=== PATIENT | female | born 2000 | race Caucasian/White ===

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

== ENCOUNTER 2019-05-31 21:56 | Emergency (ER) | payer OTHER | END 2019-05-31 23:44 | disposition home or self-care (01) | LOC: ERS 21:56 | DX: N60.01 Solitary cyst of right breast (principal); F17.210 Nicotine dependence, cigarettes, uncomplicated; F41.9 Anxiety disorder, unspecified; F32.9 Major depressive disorder, single episode, unspecified | CPT/HCPCS: 99282 ==

== ENCOUNTER 2019-08-03 13:42 | Emergency (ER) | payer OTHER ==
[2019-08-03] MEDS ORDERED: Lidocaine Viscous Sol 2% 15 ml UD Cup ONE (14:22)
[2019-08-03] MEDS ORDERED: Mag-Al 1200 mg/1200 mg/30 ML UDCUP ONE (14:22)
[2019-08-03 15:14] LABS: #Basophils 0.1 thou/uL (0.0-0.2); #Eosinphils 0.1 thou/uL (0.0-0.7); #Lymphocytes 2.9 thou/uL (1.20-3.40); #Monocytes 0.5 thou/uL (0.11-0.59); #Neutrophils 6.3 thou/uL (1.40-6.50); %Basophils 0.5 % (0.0-1.0); %Eosinophils 0.8 % (0.0-10.0); %Lymphocytes 29.2 % (28.0-48.0); %Monocytes 5.4 % (0.0-4.0); Hemoglobin 13.3 g/dL (12.0-16.0); Mean Corpuscular Hemoglobin 30.8 pg (25.0-35.0); Mean Corpuscular Volume 90.5 fL (78.0-98.0); Mean Platelet Volume 7.8 fL (7.4-10.4); Platelet Count 205 thou/uL (130-400); RBC Distribution Width 11.2 % (11.5-14.5); Red Blood Cell (RBC) Count 4.31 mill/uL (4.00-5.20); White Blood Cell (WBC) Count 9.8 thou/uL (4.8-10.8)
[2019-08-03 15:16] LABS: Bilirubin Negative (Negative); Blood, Urine Negative (Negative); Clarity Clear (Clear); Glucose, Urine (Dipstick) Normal (Negative); Leukocyte Negative Leu/uL (Negative); Nitrite Negative (Negative); Protein, Urine (Dipstick) Negative (Neg-Trace); Urobilinogen Normal mg/dL (Less than 2)
[2019-08-03 15:35] LABS: ALT (SGPT) 11 U/L (8-55); AST (SGOT) 15 U/L (5-34); Albumin 3.8 g/dL (3.5-5.0); Alkaline Phosphatase 64 U/L (40-100); Anion Gap 12 mmol/L (10-20); BUN (Urea Nitrogen) 7 mg/dL (7.0-18.7); Bilirubin, Total 0.3 mg/dL (0.2-1.2); Calc. Creatinine Clearance 0 mL/min (70-130); Calcium 9.2 mg/dL (7.8-10.44); Carbon Dioxide 21 mmol/L (22-29); Chloride 107 mmol/L (98-107); Estimated GFR-MDRD Greater than 90; Globulin 2.9 g/dL (2.4-3.5); Glucose 78 mg/dL (70-105); Lipase 16 U/L (8-78); Potassium 4.2 mmol/L (3.5-5.1); Protein, Total 6.7 g/dL (6.0-8.3); Sodium 136 mmol/L (136-145)
== END 2019-08-03 16:23 | disposition home or self-care (01) ==
LOC: ERS 13:42
DX: O99.612 Diseases of the digestive system complicating pregnancy, second trimester (principal); K29.70 Gastritis, unspecified, without bleeding; O99.332 Smoking (tobacco) complicating pregnancy, second trimester; F17.210 Nicotine dependence, cigarettes, uncomplicated; Z3A.17 17 weeks gestation of pregnancy
CPT/HCPCS: 36415; 80053; 81003; 83690; 85025; 99284

== ENCOUNTER 2019-09-08 21:46 | Emergency (ER) | payer OTHER ==
[2019-09-08] MEDS ORDERED: Ondansetron PF 4 MG/2 ML Vial ONE (22:13)
[2019-09-08] MEDS ORDERED: Morphine 4 MG/ML VIAL ONE (22:25)
[2019-09-08 22:38] LABS: Hemoglobin 13.6 g/dL (12.0-16.0); Mean Corpuscular HGB CONC 34.1 g/dL (32.0-36.0); Mean Corpuscular Volume 90.7 fL (78.0-98.0); RBC Distribution Width 11.7 % (11.5-14.5); White Blood Cell (WBC) Count 8.8 thou/uL (4.8-10.8)
[2019-09-08 22:38] LABS: Bilirubin Negative (Negative); Blood, Urine Negative (Negative); Clarity Clear (Clear); Glucose, Urine (Dipstick) Normal (Negative); Leukocyte Negative Leu/uL (Negative); Nitrite Negative (Negative); Protein, Urine (Dipstick) Negative (Neg-Trace); Urobilinogen Normal mg/dL (Less than 2)
[2019-09-08 22:50] LABS: #Basophils 0.1 thou/uL (0.0-0.2); #Lymphocytes 1.8 thou/uL (1.20-3.40); #Monocytes 0.5 thou/uL (0.11-0.59); #Neutrophils 6.4 thou/uL (1.40-6.50); %Basophils 0.7 % (0.0-1.0); %Eosinophils 0.5 % (0.0-10.0); %Lymphocytes 20.9 % (28.0-48.0); %Monocytes 5.1 % (0.0-4.0); %Neutrophils 72.7 % (31.0-61.0); Platelet Count 113 thou/uL (130-400); Platelet Morphology Comment Appears Decreased
[2019-09-08 23:18] LABS: Albumin 3.9 g/dL (3.5-5.0)
--- NOTE | 2019-09-08 23:18 | ULT ---
Sonogram right upper quadrant HISTORY: Right upper quadrant pain. FINDINGS: Gallbladder has a normal appearance. Common duct is 0.3 cm. Liver is unremarkable. No free fluid within the abdomen. IMPRESSION : Normal exam.
[2019-09-08 23:19] LABS: Chloride 105 mmol/L (98-107); Potassium 3.9 mmol/L (3.5-5.1); Sodium 137 mmol/L (136-145)
[2019-09-08 23:20] LABS: Calcium 10.2 mg/dL (7.8-10.44)
[2019-09-08 23:21] LABS: Globulin 3.1 g/dL (2.4-3.5); Glucose 91 mg/dL (70-105)
[2019-09-08 23:22] LABS: Bilirubin, Total 0.2 mg/dL (0.2-1.2); Carbon Dioxide 19 mmol/L (22-29)
[2019-09-08 23:23] LABS: Alkaline Phosphatase 61 U/L (40-100)
[2019-09-08 23:24] LABS: Calc. Creatinine Clearance 0 mL/min (70-130); Estimated GFR-MDRD Greater than 90
[2019-09-08 23:25] LABS: BUN (Urea Nitrogen) 9 mg/dL (7.0-18.7)
[2019-09-08 23:26] LABS: AST (SGOT) 18 U/L (5-34)
[2019-09-08 23:27] LABS: ALT (SGPT) 13 U/L (8-55); Lipase 10 U/L (8-78)
[2019-09-08 23:38] LABS: Anion Gap 17 mmol/L (10-20)
== END 2019-09-09 00:39 | disposition home or self-care (01) ==
LOC: ERS 21:46
DX: O99.89 Other specified diseases and conditions complicating pregnancy, childbirth and the puerperium (principal); R10.11 Right upper quadrant pain; R10.13 Epigastric pain; O99.342 Other mental disorders complicating pregnancy, second trimester; F41.9 Anxiety disorder, unspecified; O99.332 Smoking (tobacco) complicating pregnancy, second trimester; F17.210 Nicotine dependence, cigarettes, uncomplicated; Z3A.14 14 weeks gestation of pregnancy
CPT/HCPCS: 76705; 80053; 81003; 83690; 85025; 96361; 96374; 96375; J2270; J2405

== ENCOUNTER 2020-01-17 22:09 | Observation (INO) | payer OTHER ==
[2020-01-17 22:38] VITALS: BMI 33.2
[2020-01-17] MEDS ORDERED: hydrALAZINE 20 MG/ML VIAL SLOW IVP PRN (23:13)
--- NOTE | 2020-01-17 23:14 | PDOC.LDHP ---
Labor and Delivery H&P Chief complaint: contractions HPI: 19YO @ 32.6 WGA presenting for evaluation for contractions. Reports she has been dealing with contractions on and off for several weeks but was actually seen in a hospital last night for them in [place], [place] where her PCP practices. Says the contractions became persistently painful and during her drive to the hospital had persistent painful contraction every 3 minutes for the entire [address]. Reports during her workup in [place] she was told her cervix was closed and was given 3L of fluid & terbutaline x 3 before being discharged home with a prescription for a muscle relaxer. States she never picked up the prescription or tried it because she was hesitant to take a muscle relaxer while . States she has had continued contractions on and off over the course of today and finally just decided to come to [facility] for a second op inion/evaluation. States her contractions have become more painful and regular since arriving to L&D. Reports associated vaginal pain but no spotting or bleeding, LOF or abnormal discharge. No intercourse in at least 2 weeks. No N/V/D, dysuria or hematuria. +FM. Current gestational age (weeks): 32 (32.6) Due date: 03/07/20 Grav: 7 Para: 1 (1051) OB History Details: 1 term C/S for breech presentation and 5 SABs Current complications: gestational diabetes Abnormal US findings: No Past Medical History: None Current medications: pre- vitamins Previous surgical history: low tranverse CS, other (tonsillectomy, adenoidectomy & hemorrhoidectomy) Allergies/Adverse Reactions: Allergies Allergy/AdvReac Type Severity Reaction Status Date / Time codeine Allergy Severe Anaphylaxis Verified 01/17/20 22:25 Penicillins Allergy Severe Anaphylaxis Verified 01/17/20 22:25 Social history: tobacco use (smokes a few times/week but no EtOH or drug use) - Physical Exam Vital signs reviewed and normal: yes General: NAD, breathing through contractions Heart: RRR Lungs: nonlabored breathing Abdomen: NTTP Extremeties: no edema FHT: category 1 [place] contractions every: 4-9 minutes - Vaginal Exam cm dilated: 0 Effacement: 0% Station: -3 - OB Labs GBS: unknown - Plan Plan: other -: 19YO @ 32.6 WGA presenting for evaluation for contractions. contractions, r/o labor: - Maranda q4-9 minutes on the monitor since arrival w/ cat 1 FHTs. SVE clos ed/thick/high. FFN & clean catch UA collected. Will give 1L of LR and a 1 time dose of IV stadol & continue to monitor closely. A1GDM: - Continue QID accuchecks and close f/u w/ PCP Hx C/S x1: - Aware, will plan for rLTCS for delivery. Dispo: Will give 1L of LR and IV stadol & continue to monitor pending UA results. Addendum - Attending - Attending Attestation Date/Time: 01/18/20 0037 I personally evaluated the patient and discussed the management with Dr. Hernandez. I agree with the History, Examination, Assessment and Plan documented above.
[2020-01-17] MEDS ORDERED: Lactated Ringer's 1,000 ML IV SCH (23:45)
[2020-01-17] MEDS ORDERED: Butorphanol Tartrate 1 MG/ML VIAL SLOW IVP SCH (23:59)
[2020-01-18 00:47] LABS: Bilirubin Negative (Negative); Blood, Urine Negative (Negative); Clarity Clear (Clear); Glucose, Urine (Dipstick) Normal (Negative); Ketone, Urine Negative (Negative); Leukocyte Negative Leu/uL (Negative); Nitrite Negative (Negative); Protein, Urine (Dipstick) Negative (Neg-Trace); RBC/HPF 0-3 HPF (0-3); Specific Gravity, Urine 1.003 (1.002-1.036); Squamous Epithelial 0-3 HPF (0-3); Urobilinogen Normal mg/dL (Less than 2); WBC/HPF 0-3 HPF (0-3)
[2020-01-18 00:53] LABS: Bacteria/HPF 1+ HPF (None Seen); Urine Culture Reflex Yes Yes
[2020-01-18] MEDS ORDERED: Acetaminophen 500 MG TAB PO PRN (01:13)
[2020-01-18] MEDS ORDERED: Promethazine HCl 25 MG/ML VIAL IM PRN (01:13)
[2020-01-18] MEDS ORDERED: Ondansetron PF 4 MG/2 ML Vial IVP PRN (01:13)
--- NOTE | 2020-01-18 01:23 | PDOC.BPN ---
<Jenni Hernandez - Last Filed: 01/18/20 01:23> - Brief Progress Note Encounter Date: 01/18/20 Encounter Time: 01:22 19YO @ 33 WGA who presented for evaluation for contractions. contractions, r/o labor: - Maranda q4-9 minutes on the monitor w/ persistent cat 1 strip but appears more uncomfortable & is having regular, palpable contractions. s/p 1L LR & UA notable for 1+ bacteria which could be triggering contractions. Will give 100mg PO macrobid x 7 days for possible UTI. Will also give betamethasone 12mg IM Q24HR x 2 doses and load with procardia 20mg & continue q6h for the next ~48 hours as well. A1GDM: - Continue QID accuchecks and diabetic diet. - US for EFW & presentation pending. Hx C/S x1: - Aware, will plan for TOLAC for delivery per patient's request should she go into labor here pending US confirms cephalic presentation. Dispo: Will admit for observation overnight to give IM steroids Q24Hr x2 for lung maturity and tocolysis w/ JAKE nifedipine as noted above. <Eugenio Arana - Last Filed: 01/18/20 07:17> Addendum - Attending - Attending Attestation Date/Time: 01/18/20 0716 I personally evaluated the patient and discussed the management with Dr. Hernandez. I agree with the History, Examination, Assessment and Plan documented above.
[2020-01-18] MEDS ORDERED: NIFEdipine 10 MG CAP PO SCH ×2 (01:30→19:36)
[2020-01-18] MEDS ORDERED: Nitrofurantoin Monohyd/M-Cryst 100 MG CAP PO SCH ×2 (01:30→09:00)
[2020-01-18] MEDS: Betamet Acet/Betamet Na Ph 30 MG/5 ML VIAL IM SCH (01:39)
[2020-01-18] MEDS: NIFEdipine 10 MG CAP PO SCH ×3 (06:22→18:25)
--- NOTE | 2020-01-18 06:52 | PDOC.LDPN ---
Labor & Delivery Progress Note - Subjective Subjective: comfortable - Objective Vital signs reviewed and normal: yes General: NAD, breathing through contractions FHT: category 1 [place] contractions every: irregular contraction pattern noted on monitor Resuscitative measures: other (See plan below.) -: 19YO @ 33 WGA who presented for evaluation for contractions. contractions: - Still liv but is occurring less regularly on the monitor and per the patient and are reportedly less painful as well. Cervical length measured to be ~3cm per sono report. - Persistent cat 1 strip Will give betamethasone 12mg IM #2 ~24 hours from first dose and continue q6h for the next ~48 hours as well. UTI: - Clean catch urine specimen notable for 1+ bacteria. Cx pending. Will continue macrobid 100mg BID pending culture results since patient has anaphylactic allergy to PCNs. A1GDM: - QID accuchecks and diabetic diet. - EFW ~2637g/95th percentile by hadlock, MATTHEW 24, & breech presentation. LGA fetus: - EFW 95th percentile by Hadlock per sono done on admission. Will monitor BG levels closely as patient is reportedly diet controlled. Mild polyhydramnios: - MATTHEW of 24 on sono. Likely 2/2 uncontrolled GDM. Will monitor BG levels closely during admission & address PRN. Hx C/S x1: - Aware, patient with breech presentation again. Should she need to be delivered during admission, will proceed w/ rLTCS for mode of delivery. Dispo: Will continue close observation in order to give second dose of IM steroids and continued tocolytic therapy w/ JAKE nifedipine as noted above. Addendum - Attending - Attending Attestation Date/Time: 01/18/20 8595 I personally evaluated the patient and discussed the management with Dr. Hernandez. I agree with the History, Examination, Assessment and Plan documented above.
--- NOTE | 2020-01-18 09:44 | PDOC.EVN ---
Event Note - Event Note Event Note: Pt has bacteruria. allergic to pen. Macrobid ordered. Pt reports allergy to macrobid. will change to Bactrim. PT has reported taking this and tolerating it.
[2020-01-18] MEDS: Prenatal Vitamin 1 TAB PO SCH (12:34)
[2020-01-18] MEDS: Sulfameth/Trimethoprim DS 800-160mg TAB PO SCH ×2 (12:34→23:16)
[2020-01-18 14:50] LABS: SARS-CoV-2 MS2 Positive; SARS-CoV-2 N Gene Negative; SARS-CoV-2 S Gene Negative; SARS-CoV-2 by NAA Not Detected (NotDetected); SARS-CoV-2 orf1ab Negative
[2020-01-18] MEDS ORDERED: HumaLOG 300 UNITS/3 ML VIAL SC PRN (21:48)
[2020-01-18] MEDS ORDERED: Dextrose 5% in Water 1,000 ML IV PRN (21:48)
[2020-01-18] MEDS ORDERED: Dextrose 50% Abboject 50 ML SYRINGE SLOW IVP PRN (21:48)
[2020-01-18] MEDS: diphenhydrAMINE 25 MG CAP PO PRN (23:34)
[2020-01-18] MEDS: Calcium Carbonate 500 MG ChewTAB PO PRN (23:44)
[2020-01-19] MEDS: NIFEdipine 10 MG CAP PO SCH ×4 (00:02→18:15)
[2020-01-19] MEDS: Betamet Acet/Betamet Na Ph 30 MG/5 ML VIAL IM SCH (01:39)
[2020-01-19] MEDS: diphenhydrAMINE 25 MG CAP PO PRN ×4 (05:32→23:09)
--- NOTE | 2020-01-19 08:20 | PRG ---
DATE OF SERVICE: 01/19/2020 SUBJECTIVE: The patient is a 19-year-old female with an intrauterine at 33 weeks and a day, who presented to Labor and Delivery with uterine contractions and concerns of labor. Has been given betamethasone x2 and was placed on Procardia for tocolysis. The patient is now status post her second betamethasone dose. We will continue on Procardia for the next 24 hours. The patient had been reporting flushing with the Procardia which was getting difficult for her to tolerate, but reports that pre-treating with Benadryl has helped quite a bit. She has no complaints this morning. She reports uterine contractions still, but not painful. OBJECTIVE: VITAL SIGNS: Blood pressure is 119/56, pulse of 104, temperature 98.4, respiratory rate of 18. GENERAL: She appears to be in no acute distress. She is alert and oriented, cooperative, and pleasant to interact. HEENT: Head is normocephalic, atraumatic. ABDOMEN: Gravid, soft, nontender. EXTREMITIES: Nontender and nonedematous. NST is still pending today. ASSESSMENT AND PLAN: The patient is a 19-year-old female with an intrauterine at 33 weeks and a day, who lives about an hour and a half from here. If the fetus is in breech presentation, plan at this time is to continue in-house management over the next 24 to 48 hours. She will be off her Procardia late tonight or early in the morning after which we will watch for another 24 hours and see what her contractions do. At that point, we will make disposition. Delivery at this time would be by . Fingerstick blood sugars have been 154, 148, 138. The patient reports A1 diabetes with steroids. Her blood sugars are elevated. She is on a sliding scale at this time. COVID testing was negative. We will continue in-house management. Job ID: [id number]
[2020-01-19] MEDS: Sulfameth/Trimethoprim DS 800-160mg TAB PO SCH ×2 (08:36→21:10)
[2020-01-19] MEDS: Prenatal Vitamin 1 TAB PO SCH (08:36)
--- NOTE | 2020-01-19 11:43 | ULT ---
PRELIMINARY REPORT/[facility]/EMERGENCY AFTER HOURS PROCEDURE: This report was discussed with Marquita Piña RN by Afshan Morrison on Jan 18, 2020 05:02:00 CDT. Addendum electronically signed by Afshan Morrison on January 18, 2020 5:02:30 AM CDT EXAM: MLs CLINICAL HISTORY: HX: CONTRACTIONS AT 33WKS. EVAL EFW AND POSITION. PLEASE SEE LAST IMAGES FOR MEASUR EMENTS/ WORKSHEET. TECH IMPRESSION: FETUS BREECH, 5LBS 13OZ, MATTHEW 24CM. CERVIX GREATER THAN 3CM. OTHER PATRICK WNL TECHNIQUE: Transabdominal imaging of the maternal pelvis and a > 14 week gestation with image documen tation. COMPARISON: FINDINGS: FETUS: There is a single living intrauterine gestation. POSITION: position is breech. HEART RATE: The heart rate is 136 beats per minute. BIOMETRICS: Based on composite biometry, the composite estimated gestational age by ultrasound is 35 weeks and 2 days. ANATOMIC SURVEY: The visualized anatomy is unremarkable. AMNIOTIC FLUID: Within normal limits. CERVIX: Closed. Unremarkable as visualized. IMPRESSION: 1. Single living intrauterine gestation estimated at 35 weeks and 2 days with estimated weight is 5 pounds and 13 oz By today's ultrasound criteria. 2. No acute abnormality. ELECTRONICALLY SIGNED BY: Norman Foster MD Jan 18, 2020 4:55:44 AM CDT FINAL REPORT EMERGENT AFTERHOURS LIMITED OB ULTRASOUND: 01/18/20 HISTORY: Uterine contractions at 33 weeks. Evaluate weight and positioning. IMPRESSION: 1. Evidence of a single intrauterine gestation in breech presentation with heart tones doc umented. heart rate is 136 beats per minute. 2. Amniotic fluid index is increased at 24.7 cm. 3. Estimated gestational age by measurements is 35 weeks, 2 days with an RJ on 02/20/20. Gestational age by last menstrual period is 33 weeks. 4. Estimated weight is 2634 grams (5 lb. 13 oz.). This represents the 96th percentile for weight. 5. Cervical length measures 3.8 cm. This study is disagreement with the preliminary report by [facility]. There is evidence of poly hydramnios with increased amniotic fluid index of 24.7 cm. This finding was discussed with Diane Zapata and Delivery nurse on 01/18/20 at 1302 hours. POS: [facility]
[2020-01-19] MEDS: Calcium Carbonate 500 MG ChewTAB PO PRN ×3 (13:39→23:08)
[2020-01-20] MEDS: NIFEdipine 10 MG CAP PO SCH ×2 (00:14→06:37)
[2020-01-20] MEDS: diphenhydrAMINE 25 MG CAP PO PRN (05:35)
--- NOTE | 2020-01-20 06:20 | PDOC.EVN ---
Event Note - Event Note Event Note: 33 2/7 weeks No c/o overnight. Denies significant UCs. VSS AF Procardia DCed at 6AM. Plan: Will observe this AM, possible DC if does well this PM.
[2020-01-20] MEDS: Calcium Carbonate 500 MG ChewTAB PO PRN (06:34)
[2020-01-20] MEDS: Sulfameth/Trimethoprim DS 800-160mg TAB PO SCH ×2 (09:17→19:57)
[2020-01-20] MEDS: Prenatal Vitamin 1 TAB PO SCH (09:17)
[2020-01-20 17:32] VITALS: BP 119/63; TEMP 97.7
--- NOTE | 2020-01-21 01:11 | DIS ---
DATE OF ADMISSION: 01/18/2020 DATE OF DISCHARGE: 01/20/2020 ADMITTING DIAGNOSES: 1. Intrauterine at 32 weeks and 6 days. 2. labor. 3. Gestational diabetes, diet controlled. 4. Prior x1. DISCHARGE DIAGNOSES: 1. Intrauterine at 32 weeks and 6 days. 2. labor. 3. Gestational diabetes, diet controlled. 4. Prior x1. 5. Labor arrested. 6. Urinary tract infection. HOSPITAL COURSE: Patient is a 19-year-old, G7, P1 female, who presented to Labor and Delivery at 32 weeks and 6 days gestation complaining of uterine contractions that she has been experiencing off and on for several weeks and was seen at an outside facility the night before. She states that her contractions become more persistent and more painful in the last 24 hours to the point that they are about every 3 minutes for the entire 45-minute drive to the hospital. Patient was started on Procardia and betamethasone for tocolysis and lung maturity. She continued that course for the subsequent two days, at which time her contractions had quieted down. Cervix had remained unchanged and closed. Once her steroids were completed on day 2, patient was taken off Procardia for tocolysis. Patient was noted to have a fetus in breech presentation. On the day of discharge, patient continued to report contractions but not as severe as before and cervix continues to remain closed, which was last checked just prior to discharge. Vital signs at time of discharge, blood pressure was 119/63, temperature 97.7, pulse of 98, and respiratory rate of 18. In general, she appears to be in no acute distress. She is alert, oriented, cooperative, and pleasant to interact with. Questions were answered. Patient while she was here resumed care with her primary OB, Dr. Maxwell, who is a local OB provider and has an appointment tomorrow for followup. During her stay, fingerstick blood sugars had showed an initial elevation with steroid use getting as high as 154 and down to 105 fasting. Patient is being discharged home on Bactrim to be taken twice a day for urinary tract infection as patient has anaphylactic reactions to penicillins and allergy to nitrofurantoin. Job ID: [id number]
--- NOTE | 2020-01-29 14:46 | PRG ---
DATE OF SERVICE: I was asked by Ailyn Wolf assistant portfolio manager to change the status of the patient Rosa Rush to observation from inpatient for insurance purposes from her stay, 01/16 to 01/19. I am unable to add an order to the patient's stay since her chart is closed. Job ID: [id number] MTDD
== END 2020-01-20 20:10 | disposition home or self-care (01) ==
LOC: L&D/OP 22:09 → L&D 01-18 01:13 → 3SW 01-18 20:45 → INTOOBSV 01-18 21:47 → OBSVTOIN 01-18 21:47
PROVIDERS: ADMIT Obstetrics & Gynecology; ATTEND Obstetrics & Gynecology
DX: O60.03 Preterm labor without delivery, third trimester (principal); O23.43 Unspecified infection of urinary tract in pregnancy, third trimester; Z3A.32 32 weeks gestation of pregnancy; O24.420 Gestational diabetes mellitus in childbirth, diet controlled; Z20.828 Contact with and (suspected) exposure to other viral communicable diseases; O32.1XX0 Maternal care for breech presentation, not applicable or unspecified; F17.200 Nicotine dependence, unspecified, uncomplicated; O99.333 Smoking (tobacco) complicating pregnancy, third trimester; O34.211 Maternal care for low transverse scar from previous cesarean delivery; O36.63X0 Maternal care for excessive fetal growth, third trimester, not applicable or unspecified; O40.3XX0 Polyhydramnios, third trimester, not applicable or unspecified; Z79.899 Other long term (current) drug therapy; Z88.0 Allergy status to penicillin; Z88.8 Allergy status to other drugs, medicaments and biological substances
CPT/HCPCS: 36416; 76815; 81001; 87086; 87635; 96372; 96374; 99285; G0378; J0702; Q0163; U0003

== ENCOUNTER 2020-01-30 17:48 | Day surgery (SDC) | payer OTHER ==
[2020-01-30 18:50] VITALS: BP 121/75; TEMP 98.5; BMI 33.0
[2020-01-30] MEDS ORDERED: hydrALAZINE 20 MG/ML VIAL SLOW IVP PRN (19:25)
--- NOTE | 2020-01-30 19:51 | HP ---
TIME OF EVALUATION: Roughly 1915 hours, it is now 1926 hours. LOCATION: Labor and Delivery Triage. This is a patient of Dr. Maxwell. CHIEF COMPLAINT: Possible contractions at 34 weeks and 5 days. HISTORY OF PRESENT ILLNESS: In brief, this is a 19-year-old G7, P1, with SAB 5, who complains of irregular contractions. She denies vaginal bleeding or leakage of fluid. She has good movement. She states that she has history of gestational diabetes and she is diet controlled this (A1 diabetes). REVIEW OF SYSTEMS: Complete review of systems was checked and is otherwise negative unless specified in the HPI. PAST OB HISTORY: She has had one previous at term and five previous miscarriages. Past OB complications includes her multiple miscarriages and her diet-controlled diabetes this . SURGERIES: Include tonsils and adenoids and a hemorrhoidectomy in the past. ALLERGIES: NONE. SOCIAL HISTORY: Negative for alcohol, tobacco, or drug use. PHYSICAL EXAMINATION: VITAL SIGNS: Her blood pressure is 121/75, pulse is 104, temperature is 98.4, respirations are 18 and unlabored. GENERAL: She is in no acute distress. ABDOMEN: Soft and nontender. CERVICAL: Attempted by the nurse, but the nurse was "not able to find her cervix." I will do a cervical exam after this dictation. monitors, heart tones are in the 130s to 140s and they are reactive and there has been one contraction over about a 10 minute interval. heart tones are reassuring. ASSESSMENT: This is a 19-year-old, G7, P1, SAB 5, with gestational diabetes and possible contractions versus [place] Dee. PLAN: 1. I will check her cervix. 2. Check Accu-Chek. 3. I will have the patient void before her cervical exam, so we can get a better idea of her cervix. 4. If there is no evidence of active labor, then we will send her home to continue her outpatient care. Job ID: [id number]
--- NOTE | 2020-01-30 19:59 | PDOC.BPN ---
- Brief Progress Note Encounter Date: 01/30/20 Encounter Time: 19:55 CX is closed by my exam. I discussed rohan Dee and patient stated, "well, these contractions need to stop". I reviewed with her that rohan-dee are independent of possible repeat CS and we are not able to stop them completely. She seemed irritated by that fact. No acute needs at this time.
[2020-01-30] MEDS ORDERED: FLU VACC QS2020-21(6MOS UP)/PF 60 MCG/0.5 ML SYRINGE IM ONE (21:00)
== END 2020-01-30 19:50 | disposition home or self-care (01) ==
LOC: L&D/OP 17:48
PROVIDERS: ATTEND Obstetrics & Gynecology
DX: O47.03 False labor before 37 completed weeks of gestation, third trimester (principal); O24.410 Gestational diabetes mellitus in pregnancy, diet controlled; O09.293 Supervision of pregnancy with other poor reproductive or obstetric history, third trimester; O34.219 Maternal care for unspecified type scar from previous cesarean delivery; Z3A.34 34 weeks gestation of pregnancy; Z88.0 Allergy status to penicillin; Z88.1 Allergy status to other antibiotic agents; Z88.5 Allergy status to narcotic agent
CPT/HCPCS: 36416

== ENCOUNTER 2020-02-06 15:35 | Day surgery (SDC) | payer OTHER ==
[2020-02-06 16:26] VITALS: BMI 34.1
[2020-02-06 16:49] LABS: Amnisure Test No Membranes Rupture (No Rupture)
[2020-02-06 16:50] LABS: Amnisure Internal Control QC ACCEPTABLE (ACCEPTABLE)
[2020-02-06] MEDS ORDERED: hydrALAZINE 20 MG/ML VIAL SLOW IVP PRN (17:46)
--- NOTE | 2020-02-06 18:11 | PRG ---
DATE OF SERVICE: 02/06/2020 TIME OF SERVICE: 1740 hours. PRESENTING COMPLAINT: Possible leakage of fluid at 35 weeks gestation. HISTORY OF PRESENT ILLNESS: This is a patient of Dr. Maxwell. She is 35 weeks and 5 days, with prior section, for repeat at term. She is a G4, P1, AB2. EDC is 03/07. She does not have a scheduled delivery date. Antepartum record positive, antibody negative. Pap negative. Rubella immune. VDRL nonreactive. Hepatitis B, GC, Chlamydia negative. OB HISTORY: The patient has gestational diabetes, White classification A1 medicines. MEDICAL HISTORY: Reflux and obesity. SURGICAL HISTORY: Tonsillectomy and . ALLERGIES: PENICILLIN AND CODEINE. MEDICATIONS: vitamins. SOCIAL HISTORY: Denies tobacco, alcohol, or IV drug abuse. FAMILY HISTORY: Noncontributory. REVIEW OF SYSTEMS: Noncontributory. PHYSICAL EXAMINATION: GENERAL: White female, in no acute distress. VITAL SIGNS: Temperature 98.2, pulse 85, respirations 18, blood pressure 118/72. HEENT: Within normal limits. LUNGS: Clear to auscultation bilaterally. HEART: Regular rhythm. ABDOMEN: Soft, nontender. FHTs 140s. No palpable contractions. No CVA tenderness. Vulva without lesions. Vaginal exam by RN is fingertip long and high. EXTREMITIES: No clubbing, cyanosis, or edema. AmniSure was collected. AmniSure result was negative. monitoring is carried out for greater than an hour, which revealed category 1 tracing, no contractions. IMPRESSION: Leukorrhea of , no evidence of rupture of membranes, 35 weeks gestation, prior section. PLAN: Keep scheduled followup with Dr. Maxwell. ER precautions. Job ID: [id number]
[2020-02-06] MEDS ORDERED: FLU VACC QS2020-21(6MOS UP)/PF 60 MCG/0.5 ML SYRINGE IM ONE (19:00)
== END 2020-02-06 17:54 | disposition home or self-care (01) ==
LOC: L&D/OP 15:35
PROVIDERS: ATTEND Obstetrics & Gynecology
DX: O99.891 Other specified diseases and conditions complicating pregnancy (principal); N89.8 Other specified noninflammatory disorders of vagina; O99.213 Obesity complicating pregnancy, third trimester; E66.9 Obesity, unspecified; O99.613 Diseases of the digestive system complicating pregnancy, third trimester; K21.9 Gastro-esophageal reflux disease without esophagitis; O24.410 Gestational diabetes mellitus in pregnancy, diet controlled; O09.293 Supervision of pregnancy with other poor reproductive or obstetric history, third trimester; O34.219 Maternal care for unspecified type scar from previous cesarean delivery; Z79.899 Other long term (current) drug therapy; Z3A.35 35 weeks gestation of pregnancy; Z88.0 Allergy status to penicillin; Z88.1 Allergy status to other antibiotic agents; Z88.5 Allergy status to narcotic agent
CPT/HCPCS: 84112

== ENCOUNTER 2020-02-20 19:35 | Day surgery (SDC) | payer OTHER ==
[2020-02-20 20:34] VITALS: BP 123/61; TEMP 98.5; BMI 35.0
[2020-02-20] MEDS ORDERED: hydrALAZINE 20 MG/ML VIAL SLOW IVP PRN (22:42)
--- NOTE | 2020-02-20 23:25 | PRG ---
DATE OF SERVICE: 02/20/2020 TIME OF SERVICE: 0. PRESENTING COMPLAINT: Contractions since 1600 at 37 weeks gestation. HISTORY OF PRESENT ILLNESS: The patient is a 19-year-old 4 para 1, AB 2, 37 weeks, due date of 02/04, previous gestational diabetes, diet control, sees Dr. Maxwell. She complains of contractions since 4, no leakage of fluid. Active fetus. 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 Pap negative. Rubella immune. VDRL nonreactive. Hepatitis B, GC, chlamydia negative. Gestational diabetes under good diet control. SURGICAL HISTORY: Tonsillectomy and . MEDICAL HISTORY: None. ALLERGIES: PENICILLIN, CODEINE, AND MACRODANTIN. MEDICATIONS: vitamins. SOCIAL HISTORY: Denies tobacco, alcohol, or IV drug use. FAMILY HISTORY: Noncontributory. REVIEW OF SYSTEMS: Noncontributory. PHYSICAL EXAMINATION: GENERAL: White female, resting comfortably. VITAL SIGNS: 133/83, pulse 89, saturation 99%, temperature 98.2. HEENT: Within normal limits. LUNGS: Clear to auscultation bilaterally. HEART: Regular rate and rhythm. ABDOMEN: Soft, nontender. Fundal height 36. FHTs 140s. : Vulva without lesions. Vagina without discharge. Cervix, fingertip to 1, 25, and -2, cephalic. Prolonged monitoring is carried out, which revealed contractions at first were q.4 minutes and spaced out to each q.8 to 10 minutes that were identified throughout. Re-examination of cervix 1 hour later revealed to be unchanged. IMPRESSION: [place] Dee contractions, no evidence of active labor, prior section, gestational diabetes, multiparous patient at 37 weeks gestation. PLAN: Reassurance, p.o. hydration at home. ER precautions. Job ID: [id number]
[2020-02-21] MEDS ORDERED: FLU VACC QS2020-21(6MOS UP)/PF 60 MCG/0.5 ML SYRINGE IM ONE (09:00)
== END 2020-02-20 23:00 | disposition home or self-care (01) ==
LOC: L&D/OP 19:35
PROVIDERS: ATTEND Obstetrics & Gynecology
DX: O47.1 False labor at or after 37 completed weeks of gestation (principal); O24.410 Gestational diabetes mellitus in pregnancy, diet controlled; O09.293 Supervision of pregnancy with other poor reproductive or obstetric history, third trimester; O34.219 Maternal care for unspecified type scar from previous cesarean delivery; Z3A.37 37 weeks gestation of pregnancy; Z79.899 Other long term (current) drug therapy; Z88.0 Allergy status to penicillin; Z88.1 Allergy status to other antibiotic agents; Z88.5 Allergy status to narcotic agent

== ENCOUNTER 2020-02-28 09:50 | Outpatient (CLI) | payer OTHER ==
[2020-02-28 17:50] LABS: SARS-CoV-2 MS2 Positive; SARS-CoV-2 N Gene Negative; SARS-CoV-2 S Gene Negative; SARS-CoV-2 by NAA Not Detected (NotDetected); SARS-CoV-2 orf1ab Negative
== END 2020-02-28 09:51 | disposition home or self-care (01) ==
LOC: LABBT 09:50
PROVIDERS: ATTEND Obstetrics & Gynecology
DX: Z20.828 Contact with and (suspected) exposure to other viral communicable diseases (principal)
CPT/HCPCS: 87635; U0003

== ENCOUNTER 2020-03-03 10:06 | Inpatient (IN) | payer OTHER ==
[2020-03-03] MEDS ORDERED: Ondansetron PF 4 MG/2 ML Vial IVP PRN ×2 (10:27→12:09)
[2020-03-03] MEDS ORDERED: hydrALAZINE 20 MG/ML VIAL SLOW IVP PRN ×2 (10:27→15:14)
[2020-03-03] MEDS ORDERED: Promethazine HCl 25 MG/ML VIAL IM PRN ×2 (10:27→12:09)
[2020-03-03] MEDS ORDERED: Clindamycin/D5W 900 MG in Premix Bag 1 BAG IVPB SCH (10:30)
[2020-03-03] MEDS ORDERED: Bicitra 30 ML UDCUP PO SCH (10:30)
[2020-03-03 10:31] VITALS: BMI 34.4
[2020-03-03] MEDS ORDERED: FLU VACC QS2020-21(6MOS UP)/PF 60 MCG/0.5 ML SYRINGE IM ONE (10:45)
[2020-03-03] MEDS: Lactated Ringer's 1,000 ML IV SCH ×2 (10:47→23:46)
[2020-03-03 11:32] LABS: Hemoglobin 10.6 g/dL (12.0-16.0); Mean Corpuscular HGB CONC 33.5 g/dL (32.0-36.0); Mean Corpuscular Hemoglobin 26.6 pg (25.0-35.0); Mean Corpuscular Volume 79.4 fL (78.0-98.0); Mean Platelet Volume 11.1 fL (7.4-10.4); Platelet Count 172 thou/uL (130-400); RBC Distribution Width 16.2 % (11.5-14.5); Red Blood Cell (RBC) Count 3.97 mill/uL (4.00-5.20); White Blood Cell (WBC) Count 6.6 thou/uL (4.8-10.8)
[2020-03-03] MEDS ORDERED: Vancomycin 1 GM in Premix Bag 1 BAG IVPB SCH (11:45)
[2020-03-03 11:55] LABS: HBSAg Index 0.14 S/CO (0-0.99); Hep B Surf Ag Non-Reactive S/CO (NonReactive)
[2020-03-03 12:01] LABS: Syphilis Antibody Nonreactive (Nonreactive); Syphilis Antibody Index 0.04 S/CO (<1.00 Non-Reactive)
[2020-03-03] MEDS ORDERED: Meperidine HCl/PF 25 MG/ML VIAL SLOW IVP PRN (12:09)
[2020-03-03] MEDS ORDERED: Ondansetron HCl/PF 4 MG/2 ML Vial IVP PRN (12:09)
[2020-03-03] MEDS ORDERED: Naloxone HCl 0.4 mg/ml Vial IV PRN (12:09)
[2020-03-03] MEDS ORDERED: Naloxone HCl 0.4 mg/ml Vial IVP PRN ×2 (12:09)
[2020-03-03] MEDS ORDERED: L&D-Morphine 4 MG/ML VIAL SLOW IVP PRN (12:09)
[2020-03-03] MEDS ORDERED: Promethazine HCl 25 MG SUPP PR PRN (12:09)
[2020-03-03] MEDS ORDERED: diphenhydrAMINE 50 MG/ML VIAL IVP PRN (12:09)
[2020-03-03] MEDS ORDERED: Ketorolac Tromethamine 30 MG/ML VIAL IVP SCH (12:15)
[2020-03-03] MEDS ORDERED: Communication Order-Pharmacy FS SCH (12:15)
[2020-03-03] MEDS ORDERED: Oxytocin 10 UNITS/ML VIAL ONE ×3 (12:20→12:41)
[2020-03-03] MEDS ORDERED: Measles/Mumps/Rubella 10 MCG/0.5 ML VIAL SC ONE (15:14)
[2020-03-03] MEDS ORDERED: Adacel (T-DAP) 0.5 ML SYRINGE IM ONE (15:14)
[2020-03-03] MEDS ORDERED: Varicella virus, LIVE 0.5 ML VIAL SC ONE (15:14)
[2020-03-03] MEDS ORDERED: Lanolin Ointment 7 GM TUBE TOP PRN (15:14)
[2020-03-03] MEDS: Ketorolac Tromethamine 30 MG/ML VIAL IVP PRN ×2 (16:05→23:45)
[2020-03-03] MEDS: Docusate Calcium (SURFAK) 240 MG CAP PO SCH (22:47)
[2020-03-04] MEDS ORDERED: traMADol HCl 50 MG TAB PO PRN (01:15)
[2020-03-04] MEDS: traMADol HCl 50 MG TAB PO PRN ×3 (04:34→18:22)
[2020-03-04 05:49] LABS: Hemoglobin 9.2 g/dL (12.0-16.0); Mean Corpuscular HGB CONC 33.1 g/dL (32.0-36.0); Mean Corpuscular Hemoglobin 26.7 pg (25.0-35.0); Mean Corpuscular Volume 80.5 fL (78.0-98.0); Mean Platelet Volume 11.2 fL (7.4-10.4); Platelet Count 136 thou/uL (130-400); RBC Distribution Width 16.1 % (11.5-14.5); Red Blood Cell (RBC) Count 3.44 mill/uL (4.00-5.20); White Blood Cell (WBC) Count 7.5 thou/uL (4.8-10.8)
[2020-03-04] MEDS: Docusate Calcium (SURFAK) 240 MG CAP PO SCH ×2 (10:00→20:11)
[2020-03-04] MEDS: Prenatal Vitamin 1 TAB PO SCH (10:00)
[2020-03-04] MEDS: Ibuprofen 800 MG TAB PO SCH (20:10)
[2020-03-04] MEDS: Simethicone Chewable 80 MG TAB PO PRN (20:12)
[2020-03-05] MEDS: Simethicone Chewable 80 MG TAB PO PRN ×3 (04:05→19:20)
[2020-03-05] MEDS: Ibuprofen 800 MG TAB PO SCH ×3 (04:05→20:12)
[2020-03-05] MEDS: traMADol HCl 50 MG TAB PO PRN (04:06)
[2020-03-05] MEDS: Docusate Calcium (SURFAK) 240 MG CAP PO SCH ×2 (10:32→20:12)
[2020-03-05] MEDS: Prenatal Vitamin 1 TAB PO SCH (10:32)
[2020-03-05] MEDS ORDERED: HYDROcodone/Acetaminophen 5/325 mg Tablet PO PRN ×2 (11:59)
--- NOTE | 2020-03-05 14:03 | PDOC.PP ---
Post Progress Note Post Day #: 1 PO intake tolerated: yes Flatus: yes Ambulation: yes Vital Signs (12 hours) Temp Pulse Resp BP Pulse Ox 03/05/20 11:27 98.7 F 91 20 114/71 98 03/05/20 08:00 97 03/05/20 07:44 98.5 F 85 20 114/63 97 03/05/20 04:05 98.2 F 93 18 108/60 Weight Weight 220 lb - Physical Examination General: NAD Cardiovascular: no m/r/g, RRR Respiratory: clear to auscultation bilaterally, non-labored breathing Abdominal: + bowel sounds, lochia, no distention Extremities: negative homans (B) Skin: CS incision dry & intact, no rash Neurological: no gross focal deficits Psychiatric: A&Ox3, normal affect Result Diagrams: 03/04/20 05:32 Additional Labs: Post Labs Hep Bs Antigen Non-Reactive S/CO (NonReactive) 03/03/20 10:56 Blood Type A POSITIVE 03/03/20 10:56
--- NOTE | 2020-03-05 19:57 | PDOC.PP ---
Post Progress Note Post Day #: 2 PO intake tolerated: yes Flatus: yes Ambulation: yes Vital Signs (12 hours) Temp Pulse Resp BP Pulse Ox 03/05/20 16:58 98.6 F 105 H 16 115/76 98 03/05/20 11:27 98.7 F 91 20 114/71 98 03/05/20 08:00 97 Weight Weight 220 lb - Physical Examination General: NAD Cardiovascular: no m/r/g, RRR Respiratory: clear to auscultation bilaterally, non-labored breathing Abdominal: + bowel sounds, lochia, no distention Extremities: negative homans (B) Skin: CS incision dry & intact, no rash Neurological: no gross focal deficits Psychiatric: A&Ox3, normal affect (DC to home tonight) Result Diagrams: 03/04/20 05:32 Additional Labs: Post Labs Hep Bs Antigen Non-Reactive S/CO (NonReactive) 03/03/20 10:56 Blood Type A POSITIVE 03/03/20 10:56
--- NOTE | 2020-03-05 19:59 | PDOC.LDHP ---
Labor and Delivery H&P Chief complaint: scheduled section HPI: 19 y/o presents for scheduled repeat today. Due date: 03/07/20 Dating criteria: last menstrual period Grav: 4 Para: 1 Abnormal US findings: Yes (Polyhydramnios, LGA) Current medications: pre- vitamins Previous surgical history: low tranverse CS Allergies/Adverse Reactions: Allergies Allergy/AdvReac Type Severity Reaction Status Date / Time codeine Allergy Severe Anaphylaxis Verified 03/05/20 12:32 nitrofurantoin Allergy Mild Verified 03/03/20 10:37 [From Macrobid] Penicillins Allergy Anaphylaxis Verified 03/03/20 10:37 Social history: none - Physical Exam Vital signs reviewed and normal: yes General: NAD, resting Heart: RRR Lungs: CTAB Abdomen: gravid Extremeties: no edema FHT: category 1 - Assessment L&D Assessment: scheduled repeat section - Plan Plan: admit to L&D, to OR for section
[2020-03-05 20:16] VITALS: BP 120/72; TEMP 98.9
--- NOTE | 2020-03-06 00:36 | OP ---
DATE OF PROCEDURE: 03/03/2020 TIME OF SERVICE: 1218 hours central daylight savings time. PREOPERATIVE DIAGNOSES: Intrauterine at 39 weeks and 3 days with a scheduled repeat low-transverse section, also history of gestational diabetes and polyhydramnios. POSTOPERATIVE DIAGNOSES: Intrauterine at 39 weeks and 3 days with a scheduled repeat low-transverse section, also history of gestational diabetes and polyhydramnios. PROCEDURE PERFORMED: Repeat low transverse section. FINDINGS: Viable female infant, weighing 4365 g or 9 pounds 10 ounces, Apgars 8 and 9. QUANTITATIVE BLOOD LOSS: 680 mL. COMPLICATIONS: None. DETAILS OF THE PROCEDURE: After obtaining consent, the patient was taken back to the operating room where her regional anesthesia was found to be adequate. The patient was placed in the dorsal supine position with leftward tilt. The skin was tested for adequate anesthesia and a scalpel was then used to make a Pfannenstiel incision which was carried down to the underlying rectus fascia. The fascia was incised in the midline and the fascial incision extended in both lateral directions. 2 Myah clamps were placed at the superior aspect of the fascia and the rectus muscles were dissected away. Similarly, 2 Myah clamps were placed at the inferior aspect of the incision and rectus muscles dissected away. The rectus muscles were then in the midline and the peritoneum identified and entered bluntly with the hemostat. The peritoneal incision was then extended superiorly and inferiorly. A bladder blade was then placed within the peritoneal cavity and a bladder flap was made with Metzenbaum scissors and pickups with teeth. The bladder blade was replaced. A clean scalpel was used to make a uterine incision. The baby was then delivered with gentle fundal pressure without difficulty. The baby's mouth and nose were bulb suctioned and the cord clamped and cut. The baby was then handed to waiting attendants. Cord blood and cord gases were obtained. The placenta was manually extracted. The uterus exteriorized, cleared of all clots and debris, and repaired with #1 chromic suture in a running, locked fashion. Hemostasis at the uterine wall was excellent. The bladder flap was repaired with 2-0 Monocryl in a running fashion. The tubes and ovaries were inspected and appeared normal. The posterior cul-de-sac was blotted dry and the uterus was replaced within the abdomen. Again, the uterus was firm, and hemostasis was excellent at the uterine repair. Peritoneum was closed with 2-0 chromic suture in a running fashion. Fascia was reapproximated with 0 Vicryl, using 2 running sutures tied in the midline. The subcutaneous tissue was irrigated. Hemostasis was assured and the skin closed with 3-0 Monocryl and Dermabond adhesive. The patient was then transferred to the ambulatory bed and taken to recovery in stable condition. Job ID: [id number]
== END 2020-03-05 22:20 | disposition home or self-care (01) | DRG 788 ==
LOC: L&D 10:06 → 3SW 15:06
PROVIDERS: ADMIT Obstetrics & Gynecology; ATTEND Obstetrics & Gynecology
PROC: 10D00Z1 Extraction of Products of Conception, Low, Open Approach (ICD-10-PCS; principal; 2020-03-03)
DX: O34.219 Maternal care for unspecified type scar from previous cesarean delivery (principal); Z37.0 Single live birth; Z3A.39 39 weeks gestation of pregnancy; O40.3XX0 Polyhydramnios, third trimester, not applicable or unspecified
CPT/HCPCS: 36415; 51702; 85027; 86780; 86850; 86900; 86901; 87340; J1885; J2270; J3490

== ENCOUNTER 2020-11-03 15:17 | Emergency (ER) | payer OTHER | END 2020-11-03 17:08 | disposition home or self-care (01) | LOC: ERS 15:17 | DX: O99.891 Other specified diseases and conditions complicating pregnancy (principal); M54.5 Low back pain; O24.419 Gestational diabetes mellitus in pregnancy, unspecified control; O99.331 Smoking (tobacco) complicating pregnancy, first trimester; F17.210 Nicotine dependence, cigarettes, uncomplicated; Z3A.01 Less than 8 weeks gestation of pregnancy; X50.9XXA Other and unspecified overexertion or strenuous movements or postures, initial encounter | CPT/HCPCS: 99283 ==